=== PATIENT | male | born 1935 | race Native Hawaiian/Other Pacific Islander ===

== ENCOUNTER 2019-05-15 18:55 | Emergency (ER) | payer OTHER ==
[~2019-05-15] VITALS: Ht 165.1 cm; Wt 86.6 kg
[~2019-05-15 18:55] MED LIST: ARTIFICIAL TEAR1.4 % OPTH; ASPIR-8181 MG PO; BENZTROPINE0.5 MG PO; CARB25TA29 PO; DIVA250T PO; DOCU100C10 PO; ELIQUIS5 MG PO; GABA100C2 PO; LIPITOR20 MG PO; MONT10TA PO; NAMENDA5 MG PO; RISP0.5T2 PO; TRAM50TA PO; TRAMADOL HCL100 MG PO; TYLENOL325 MG PO
[2019-05-15 19:36] LABS: PLATELET COUNT 243 K/uL (142-355)
[2019-05-15 19:54] LABS: POTASSIUM 4.5 mmol/L (3.6-5.2)
[2019-05-15 21:09] VITALS: BP 125/78; TEMP 98.3
== END 2019-05-15 21:09 | disposition still patient (30) ==
LOC: ED 18:55
PROVIDERS: Hospitalist
DX: S00.83XA Contusion of other part of head, initial encounter (principal); W01.198A Fall on same level from slipping, tripping and stumbling with subsequent striking against other object, initial encounter; Y92.238 Other place in hospital as the place of occurrence of the external cause
CPT/HCPCS: 36415; 80048; 85027; 85610; 85730; 99283